=== PATIENT | female | born 1990 | race African-American/Black ===

== ENCOUNTER 2017-09-06 15:24 | Emergency (ER) | payer MEDICAID ==
[~2017-09-06] VITALS: Ht 167.6 cm; Wt 74.0 kg
[2017-09-06 16:23] VITALS: BP 122/64
[2017-09-06] MEDS ORDERED: DIPHENHYDRAMINE 50MG CAPSULE PO ONE (16:30)
[2017-09-06] MEDS ORDERED: PREDNISONE 20MG TABLET PO ONE (16:30)
[2017-09-06] MEDS ORDERED: FAMOTIDINE 20MG TABLET PO ONE (16:30)
== END 2017-09-06 18:09 | disposition home or self-care (01) ==
LOC: ER 15:24
DX: T78.1XXA Other adverse food reactions, not elsewhere classified, initial encounter (principal); X58.XXXA Exposure to other specified factors, initial encounter
CPT/HCPCS: 99284; J7512; Q0163